=== PATIENT | male | born 1930 | race Two or more races ===

== ENCOUNTER 2019-05-01 11:52 | Emergency (ER) | payer MEDICARE, MEDICAID ==
[~2019-05-01] VITALS: Ht 167.6 cm; Wt 73.0 kg
[2019-05-01 14:51] VITALS: BP 128/72
== END 2019-05-01 14:52 | disposition home or self-care (01) ==
LOC: ER 11:52
DX: T83.098A Other mechanical complication of other urinary catheter, initial encounter (principal); N40.0 Benign prostatic hyperplasia without lower urinary tract symptoms; N41.9 Inflammatory disease of prostate, unspecified
CPT/HCPCS: 51702; 99284